=== PATIENT | female | born 1990 ===

== ENCOUNTER 2025-06-28 18:01 | Emergency (ER) | payer MEDICAID, OTHER ==
[~2025-06-28] VITALS: Ht 175.3 cm; Wt 100.0 kg
[2025-06-28] MEDS ORDERED: levETIRAcetam 500 mg/100ml 100 ML IV SCH (18:30)
[2025-06-28] MEDS: MIDAZOLAM HCL 2MG/2ML 2ml VIAL (1mg/ml) IM ONE (18:30)
--- NOTE | 2025-06-28 19:11 | ED.PDOC ---
HPI (NEURO) HPI Comments 35-year-old female with a history of seizure disorder on Keppra now complains of having a seizure at home this afternoon. Patient is briefly amnestic to events. Patient denies any trauma from the seizure. She has no cuts or injury to her mouth. Patient states that she has been taking her seizure medication and her last seizure was about a year ago. Chief Complaint: Seizure Time Seen by MD: 18:19 Information Source: Patient, Emergency Med Personnel Mode of Arrival: EMS Severity: Severe Headache Severity: Moderate Timing: Minutes Duration: Since onset Seizure Quality: Grand mal, Tonic-clonic Onset: At rest Circumstances: Other Before: Normal After: Confusion History of: Seizure Disorder Past Medical History PAST MEDICAL HISTORY: Seizures Family History Family History: Reviewed,noncontributory to illness Social History Smoker: Non-Smoker Alcohol: Denies ETOH Use Neurological: reports: seizure All Other Systems: Reviewed and Negative Physical Exam General Appearance: Mild Distress, Obese HEENT: Normal ENT Inspection, Pharynx Normal, TMs Normal Neck: Full Range of Motion, Non-Tender, Normal, Normal Inspection Respiratory: Chest Non-Tender, Lungs Clear, No Accessory Muscle Use, No Respiratory Distress, Normal Breath Sounds Cardiovascular: No Edema, No JVD, No Murmur, No Gallop, Normal Peripheral Pulses, Regular Rate/Rhythm Breast Exam: Deferred Gastrointestinal: No Organomegaly, Non Tender, No Pulsatile Mass, Normal Bowel Sounds, Soft Genitalia: Deferred Pelvic: Deferred Rectal: Deferred Extremities: No calf tenderness, Normal capillary refill, Normal inspection, Normal range of motion, Non-tender, No pedal edema Musculoskeletal : Apperance: Normal Neurologic: Alert, hospice office coordinator II-XII nml as Tested, No Motor Deficits, Normal Affect, Normal Mood, No Sensory Deficits, Other (amnestic to events) Cerebellar Function: Normal Reflexes: Normal Skin: Dry, Normal Color, Warm Lymphatic: No Adenopathy Was a procedure done? Was a procedure done?: No Differential Diagnosis (SZ) Seizure: Psychogenic Seizure, Alcohol Withdrawl, Anticonvulsant Withdrawl, Closed Head Injury, Idiopathic, Mass Lesion, Meningitis, Syncope, Encephalopathy, Epilepsy-Break Through, Epilepsy-Status X-Ray, Labs, Meds, VS Vital Signs Date Time Temp Pulse Resp B/P (MAP) Pulse Ox O2 Delivery O2 Flow Rate FiO2 06/28/25 18:52 98.2 93 18 121/89 97 98.2 Time of 1ST Reevaluation: 18:15 Reevaluation 1ST: Improved Patient Education/Counseling: Diagnosis, Treatment Family Education/Counseling: No Family Present Departure 1 Departure Time of Disposition: 18:30 Impression: Primary Impression: Seizure Additional Impression: Seizure disorder Disposition: 07 LEFT AGAINST MEDICAL ADVICE Condition: Fair Discharged With: Self Critical Care Note Critical Care Time?: No Stability Stability form required: No Heart Score Heart Score: Heart Score Response (Comments) Value History N/A 0 EKG N/A 0 Age N/A 0 Risk Factors N/A 0 Troponin N/A 0 Total 0 WALKER PLASCENCIA MD Jun 28, 2025 19:11
[2025-06-28 19:53] VITALS: BP 130/87; PULSE 78; RESP 20; TEMP 98.1; O2SAT 97
[2025-06-28] MEDS: levETIRAcetam 1000 mg/100ml 100 ML IV ONE (22:36)
[2025-06-28] MEDS ORDERED: LEVE100012 PO (23:15)
== END 2025-06-28 23:30 | disposition home or self-care (01) ==
LOC: EDBD 18:01 → ER 18:01
DX: G40.909 Epilepsy, unspecified, not intractable, without status epilepticus (principal)
CPT/HCPCS: 96372; 96374; 99284; J1953; J2250